=== PATIENT | female | born 1985 | race Caucasian/White ===

== ENCOUNTER 2020-06-21 08:28 | Inpatient (IN) | payer BC, SELFPAY ==
[~2020-06-21] VITALS: Ht 152.4 cm; Wt 63.5 kg
[2020-06-21] MEDS ORDERED: PNV91TAB8 PO (08:41)
[2020-06-21] MEDS ORDERED: LACTATED RINGERS 1,000 ML IV SCH (08:45)
[2020-06-21 09:14] LABS: BASOPHILS % (AUTO) 0.4 % (0.0-2.0); EOSINOPHILS # (AUTO) 0.1 K/uL (0-0.4); HEMATOCRIT 36.9 % (36-48); HEMOGLOBIN 11.9 g/dL (12.0-16.0); LYMPHOCYTES # (AUTO) 2.2 K/uL (2.5-16.5); LYMPHOCYTES % (AUTO) 25.2 % (20.5-51.1); MEAN CORPUSCULAR HEMOGLOBIN 24 pg (27-31); MEAN CORPUSCULAR HGB CONC 32 g/dL (33-37); MEAN CORPUSCULAR VOLUME 73.2 fL (80-94); MONOCYTES # (AUTO) 0.8 K/uL (0.8-1.0); MONOCYTES % (AUTO) 9.1 % (1.7-9.3); NEUTROPHILS # (AUTO) 5.5 K/uL (1.8-7.7); NEUTROPHILS % (AUTO) 64.3 % (42.2-75.2); PLATELET COUNT (AUTO) 347 K/uL (140-450); RED BLOOD CELL COUNT(AUTO) 5.04 MIL/uL (4.20-5.40); RED CELL DISTRIBUTION WIDTH 16.3 % (11.6-13.7); WHITE BLOOD COUNT (AUTO) 8.6 K/uL (4.8-10.8)
[2020-06-21 09:33] LABS: APPEARANCE,URINE CLEAR (CLEAR); BILIRUBIN,URINE NEGATIVE (NEGATIVE); BLOOD, URINE 1+ (NEGATIVE); COLOR,URINE YELLOW (YELLOW); LEUKOCYTE ESTERASE ,URINE 2+ (NEGATIVE); NITRITE, URINE NEGATIVE (NEGATIVE); UGLUCOSE NEGATIVE (NEGATIVE)
[2020-06-21 09:34] LABS: ALBUMIN 2.5 g/dL (3.4-5.0); ANION GAP 18.3 (8-16); CARBON DIOXIDE 19.5 mmol/L (21-32); CREATININE 0.5 mg/dL (0.6-1.3); POTASSIUM 3.8 mmol/L (3.5-5.1); TOTAL BILIRUBIN 0.3 mg/dL (0.0-1.0)
[2020-06-21] MEDS: OXYTOCIN 20 UNITS in LACTATED RINGERS 1,000 ML IV SCH (09:45)
[2020-06-21 09:59] VITALS: BP 120/80
[2020-06-21] MEDS ORDERED: MORPHINE PRES FREE 10 MG/10 ML AMP IV ONE (13:20)
[2020-06-21] MEDS ORDERED: ONDANSETRON 4 MG/2 ML VIAL ONE (13:39)
[2020-06-21] MEDS ORDERED: KETOROLAC 30 MG/ML VIAL ONE (13:39)
[2020-06-21] MEDS ORDERED: METHYLERGONOVINE 0.2 MG/ML AMP IM PRN (13:55)
[2020-06-21] MEDS ORDERED: KETOROLAC 30 MG/ML VIAL IVP PRN ×2 (13:55→14:05)
[2020-06-21] MEDS ORDERED: IBUPROFEN 800 MG TAB PO PRN (13:55)
[2020-06-21] MEDS ORDERED: OXYTOCIN 20 UNITS in LACTATED RINGERS 1,000 ML IV SCH (13:55)
[2020-06-21] MEDS ORDERED: SODIUM PHOSPHATE 118 ML ENEM RC PRN (13:55)
[2020-06-21] MEDS ORDERED: oxyCODONE/APAP 5/325 MG 1 TAB TAB PO PRN (13:55)
[2020-06-21] MEDS ORDERED: NALOXONE 0.4 MG/ML VIAL IVP PRN ×2 (14:05)
[2020-06-21] MEDS ORDERED: diphenhydrAMINE 50 MG/ML VIAL IVP PRN (14:05)
[2020-06-21] MEDS ORDERED: OXYTOCIN 20 UNITS/LR PREMIX 1,000 ML IV ONE (14:56)
--- NOTE | 2020-06-21 15:05 | NUR ---
PATIENT HAS BEEN SCREENED AND CATEGORIZED LOW NUTRITION RISK. PATIENT WILL BE SEEN WITHIN 7 DAYS OF ADMISSION. 06/27/[address]
[2020-06-21] MEDS ORDERED: KETOROLAC 30 MG/ML VIAL IVP ONE (20:20)
[2020-06-21] MEDS ORDERED: ACETAMINOPHEN 325 MG TAB PO ONE (20:20)
[2020-06-21] MEDS: DOCUSATE SOD/SENNA 50/8.6 MG 1 TAB PO SCH (20:43)
[2020-06-21] MEDS ORDERED: TEMAZEPAM 15 MG CAP PO PRN (21:00)
[2020-06-22] MEDS ORDERED: OXYTOCIN 20 UNITS/LR PREMIX 1,000 ML IV ONE (01:38)
[2020-06-22] MEDS: OXYTOCIN 20 UNITS in LACTATED RINGERS 1,000 ML IV SCH (01:54)
[2020-06-22 05:42] LABS: BASOPHILS % (AUTO) 0.2 % (0.0-2.0); EOSINOPHILS # (AUTO) 0.1 K/uL (0-0.4); EOSINOPHILS % (AUTO) 0.6 % (0.0-4.0); HEMATOCRIT 31.1 % (36-48); HEMOGLOBIN 10.1 g/dL (12.0-16.0); LYMPHOCYTES # (AUTO) 1.9 K/uL (2.5-16.5); LYMPHOCYTES % (AUTO) 18.2 % (20.5-51.1); MEAN CORPUSCULAR HEMOGLOBIN 24 pg (27-31); MEAN CORPUSCULAR HGB CONC 32 g/dL (33-37); MEAN CORPUSCULAR VOLUME 73.1 fL (80-94); MONOCYTES # (AUTO) 0.8 K/uL (0.8-1.0); MONOCYTES % (AUTO) 7.5 % (1.7-9.3); NEUTROPHILS # (AUTO) 7.6 K/uL (1.8-7.7); NEUTROPHILS % (AUTO) 73.5 % (42.2-75.2); PLATELET COUNT (AUTO) 300 K/uL (140-450); RED BLOOD CELL COUNT(AUTO) 4.25 MIL/uL (4.20-5.40); RED CELL DISTRIBUTION WIDTH 16.6 % (11.6-13.7); WHITE BLOOD COUNT (AUTO) 10.3 K/uL (4.8-10.8)
[2020-06-22 07:07] LABS: HEPATITIS B SURFACE ANTIGEN Negative (Negative)
[2020-06-22] MEDS: SIMETHICONE 80 MG TAB.CHEW PO PRN ×3 (08:55→18:10)
[2020-06-22] MEDS ORDERED: FLU VACCINE QS2020-21 0.5 ML SYR IMVAC PRN (20:45)
[2020-06-22] MEDS ORDERED: CAMERA MC ONE (21:17)
[2020-06-22] MEDS: DOCUSATE SOD/SENNA 50/8.6 MG 1 TAB PO SCH (21:24)
[2020-06-23] MEDS: oxyCODONE/APAP 5/325 MG 1 TAB TAB PO PRN ×2 (04:45→10:10)
[2020-06-23] MEDS: SIMETHICONE 80 MG TAB.CHEW PO PRN (08:47)
[2020-06-23] MEDS ORDERED: FERR325E14 PO (13:35)
[2020-06-23] MEDS ORDERED: IBUP-2213 PO (13:37)
[2020-06-23] MEDS ORDERED: ACET-5629 PO (13:38)
== END 2020-06-23 14:25 | disposition home or self-care (01) | DRG 540 ==
LOC: MLD 08:28 → MFCC 15:18
PROVIDERS: ADMIT Obstetrics & Gynecology; ATTEND Obstetrics & Gynecology
PROC: 0UB70ZZ Excision of Bilateral Fallopian Tubes, Open Approach (ICD-10-PCS; 2020-06-21)
PROC: 10D00Z1 Extraction of Products of Conception, Low, Open Approach (ICD-10-PCS; principal; 2020-06-21 13:00)
PROC: 3E02340 Introduction of Influenza Vaccine into Muscle, Percutaneous Approach (ICD-10-PCS; 2020-06-22)
DX: O26.62 Liver and biliary tract disorders in childbirth (principal); O36.8130 Decreased fetal movements, third trimester, not applicable or unspecified; K83.1 Obstruction of bile duct; Z20.828 Contact with and (suspected) exposure to other viral communicable diseases; Z3A.37 37 weeks gestation of pregnancy; Z23 Encounter for immunization; Z37.0 Single live birth; Z30.2 Encounter for sterilization
CPT/HCPCS: 36415; 80053; 81001; 85025; 86592; 86762; 86886; 86900; 86901; 87081; 87086; 87340; 88302; 90715; J0690; J1885; J2270; J2405; J2590; J7060; J7120